=== PATIENT | male | born 1965 | race Caucasian/White ===

== ENCOUNTER 2019-09-19 10:23 | Emergency (ER) | payer OTHER, SELFPAY ==
[2019-09-19 10:34] VITALS: BP 185/90; PULSE 71; RESP 16; TEMP 37; O2SAT 98
--- NOTE | 2019-09-19 10:35 | ED.GENADULT ---
HPI - General Adult General Chief complaint: Ear Stated complaint: ear pain Source: patient and RN notes reviewed Mode of arrival: ambulatory Limitations: no limitations History of Present Illness HPI narrative: This is a 54 years old male presents to the office for an evaluation of right ear pain for two day. He has been swimming in his pool for 1 week. He has similar symptoms in the past with swimmer's ear. He tried [id number] eardrops with no changes. Denies any other associated symptoms such as fever, cough, congestion, or feeling ill. He admits to history of hypertension. Related Data Home Medications Medication Instructions Recorded Confirmed doxycycline monohydrate 100 mg 100 mg PO DAILY 08/15/19 09/12/19 capsule aspirin 09/19/19 Allergies Allergy/AdvReac Type Severity Reaction Status Date / Time No Known Allergies Allergy Verified 09/12/19 11:11 Review of Systems Review of Systems: Narrative: CONSTITUTIONAL: Denies fever, chills, sweats. EYES: Denies visual changes ENT: Denies rhinorrhea, congestion, sore throat CARDIOVASCULAR: Denies chest pain RESPIRATORY: Denies dyspnea, cough GASTROINTESTINAL: Denies abdominal pain, nausea, vomiting SKIN: Denies rash MUSCULOSKELETAL: Denies acute back pain NEUROLOGIC: Denies lightheaded All systems reviewed & are unremarkable except as noted in HPI and below PMFSH Past Medical History Medical History Essential (primary) hypertension JOELLE (obstructive sleep apnea) Other and unspecified hyperlipidemia Family History Family History Other Diabetes mellitus Family history of coronary artery disease Malignant neoplasm of prostate Social History Social History Smoking status: Former smoker Alcohol intake: current Comments At time of signature, I agree with nursing past medical, surgical, social and family history. There is no relevant family history pertinent to the presenting complaint. Exam Narrative: Exam Narrative: GENERAL: This is a well-nourished, well-developed patient, in no apparent distress. EARS: External ears normal, left auditory canals clear and without drainage, right canal appears edematous with erythema and tragal tenderness. TMs normal without perforation. Hearing grossly intact. NOSE: External nose normal with no obvious nasal discharge, nares without redness, no rhinorrhea. THROAT: Mucous membranes moist, posterior pharynx clear. NECK: Neck supple, non-tender without lymphadenopathy, masses or thyromegaly. CARDIOVASCULAR: Regular rate and rhythm without murmurs, gallops, or rubs. RESPIRATORY: Clear to auscultation. Breath sounds equal bilaterally. No wheezes, rales, or rhonchi. GASTROINTESTINAL: Abdomen soft, non-tender, nondistended. Bowel sounds are active. No guarding. SKIN: warm, intact with no suspicious lesions or rash, good texture and turgor. NEURO: awake, alert, and oriented to person, place and time. There were no obvious focal neurologic abnormalities. Steady gait Zia Coma Scale Eye Opening: Spontaneous 4 Zia Coma Scale Motor: Obeys Commands 6 [place] Coma Scale Verbal: Oriented 5 Course Vital Signs Vital signs: Vital Signs Temperature 98.6 F 09/19/19 10:34 Pulse Rate 71 09/19/19 10:34 Respiratory Rate 16 09/19/19 10:34 Blood Pressure 185/90 H 09/19/19 10:34 Pulse Oximetry 98 09/19/19 10:34 Temperature 98.6 F 09/19/19 10:34 Pulse Rate 71 09/19/19 10:34 Respiratory Rate 16 09/19/19 10:34 Blood Pressure 185/90 H 09/19/19 10:34 Pulse Oximetry 98 09/19/19 10:34 Medical Decision Making MDM Narrative Medical decision making narrative: Elevated BP noted in the office, I recommend patient to follow-up with his doctors to recheck in 2 weeks. Discharge instructions reviewed with patient, as well
== END 2019-09-19 10:56 | disposition home or self-care (01) ==
PROVIDERS: Emergency Provider Nurse Practitioner; PCP Family Medicine
DX: H60.331 Swimmer's ear, right ear (principal); I10 Essential (primary) hypertension; G47.33 Obstructive sleep apnea (adult) (pediatric); E78.5 Hyperlipidemia, unspecified; Z87.891 Personal history of nicotine dependence
CPT/HCPCS: 99213; G0463

== ENCOUNTER 2021-05-01 08:03 | Emergency (ER) | payer OTHER, SELFPAY ==
[2021-05-01 08:17] VITALS: BP 172/81; PULSE 68; RESP 16; TEMP 36.5; O2SAT 99
--- NOTE | 2021-05-01 08:31 | ED.MALEGU ---
HPI - Male Genitourinary General Chief complaint: Urogenital-Male Stated complaint: bladder infection/abd pain Time Seen by Provider: 05/01/21 08:30 Source: patient Mode of arrival: ambulatory Limitations: no limitations History of Present Illness HPI Narrative: Hang Chester is a 56 yo male with a PMH of HTN, uti, who comes to [facility] with complaints of dysuria the last 24 hours and of lower abdominal pain. He states he had lower abdominal pain a week ago and it disappeared and was result of constipation due to starting a new keto diet couple weeks prior; but the pain is now returned and he has frequency and difficulty starting stream and voiding large amount the same time. He is having difficulty giving us a urine sample for dipstick analysis No fever no nausea vomiting diarrhea Related Data Home Medications Medication Instructions Recorded Confirmed doxycycline hyclate 100 mg PO DAILY 05/01/21 05/01/21 ketoconazole 1 applic TOPICAL DAILY 05/01/21 05/01/21 terbinafine HCl 250 mg PO DAILY 05/01/21 05/01/21 Allergies Allergy/AdvReac Type Severity Reaction Status Date / Time No Known Allergies Allergy Verified 05/01/21 08:47 Review of Systems Review of Systems: CONSTITUTIONAL: Denies fever, chills, sweats. EYES: Denies visual changes, redness, discharge. ENT: Denies rhinorrhea, congestion, sore throat, otalgia. CARDIOVASCULAR: Denies chest pain, palpitations, edema. RESPIRATORY: Denies dyspnea, wheezing, cough GASTROINTESTINAL: Denies abdominal pain, nausea, vomiting, diarrhea. GENITOURINARY: Has dysuria, no hematuria, abnormal discharge SKIN: Denies rash or itching. NEUROLOGIC: Denies numbness, or focal weakness. PSYCHIATRIC: Denies anxiety or depression. [facility] Past Medical History Medical History BMI 38.0-38.9,adult Essential (primary) hypertension JOELLE (obstructive sleep apnea) Other and unspecified hyperlipidemia Screening for lipid disorders Screening for prostate cancer Family History Family History Other Diabetes mellitus Family history of coronary artery disease Malignant neoplasm of prostate Social History Social History Smoking status: Former smoker Alcohol intake: current Comments At time of signature, I agree with nursing past medical, surgical, social and family history. There is no relevant family history pertinent to the presenting complaint. Exam Narrative: GENERAL: This is a well-nourished, well-developed patient, in mild distress. HEAD: normocephalic, atraumatic. EYES: Sclera clear/white. Vision is grossly intact. EARS: External ears normal, Hearing grossly intact. NOSE: External nose normal without nasal discharge, nares without redness, no rhinorrhea. THROAT: Mucous membranes moist, NECK: Neck supple, CARDIOVASCULAR: Regular rate and rhythm without murmurs, gallops, or rubs. RESPIRATORY: Clear to auscultation. Breath sounds equal bilaterally. No wheezes, rales, or rhonchi. GASTROINTESTINAL: Abdomen soft, -tender,syprapubic area SKIN: warm, intact with no suspicious lesions or rash, good texture and turgor. NEURO: awake, alert, and oriented to person, place and time. There were no obvious focal neurologic abnormalities. Steady gait EXTREMITIES: Normal range of motion. BACK: Nontender without deformity Course Course Emergency Course: Patient here complaining of frequency difficulty starting stream and voiding adequate amounts each time Urinalysis shows- tr blood,ketones Treatment for dysuria with Cipro 500 mg 1 twice daily x5 days-told patient to go to ER or to doctor if pain worsens he is to go to ER if he starts running a temp and the pain becomes more severe within the next 24 hours Level of Care: Express Care Visit Vital Signs Vital signs: Vital Signs Temperature 97.7 F 05/01/21
--- NOTE | 2021-05-01 08:41 | ED_ITS ---
HPI - Nausea/Vomiting/Diarrhea General Chief complaint: Urogenital-Male Stated complaint: bladder infection/abd pain Time Seen by Provider: 05/01/21 08:30 Source: patient Mode of arrival: ambulatory Limitations: no limitations Related Data Home Medications Medication Instructions Recorded Confirmed aspirin 09/19/19 03/17/20 Allergies Allergy/AdvReac Type Severity Reaction Status Date / Time No Known Allergies Allergy Verified 03/17/20 07:53 [facility] Past Medical History Medical History BMI 38.0-38.9,adult Essential (primary) hypertension JOELLE (obstructive sleep apnea) Other and unspecified hyperlipidemia Screening for lipid disorders Screening for prostate cancer Family History Family History Other Diabetes mellitus Family history of coronary artery disease Malignant neoplasm of prostate Social History Social History Smoking status: Former smoker Alcohol intake: current Course Vital Signs Vital signs: Vital Signs Temperature 97.7 F 05/01/21 08:17 Pulse Rate 68 05/01/21 08:17 Respiratory Rate 16 05/01/21 08:17 Blood Pressure 172/81 H 05/01/21 08:17 Pulse Oximetry 99 05/01/21 08:17 Temperature 97.7 F 05/01/21 08:17 Pulse Rate 68 05/01/21 08:17 Respiratory Rate 16 05/01/21 08:17 Blood Pressure 172/81 H 05/01/21 08:17 Pulse Oximetry 99 05/01/21 08:17 Discharge Plan Discharge Clinical Impression: Dysuria Prescriptions: No Action aspirin RF: 0 sildenafil 100 mg tablet 100 mg PO DAILY PRN (Reason: sexual activity) Qty: 10 RF: 2 lisinopril-hydrochlorothiazide 20-25 mg tablet 1 tablet PO DAILY Qty: 90 RF: 1 metoprolol succinate 100 mg tablet extended release 24 hr See Rx Instructions .ROUTE .COMPLEX Qty: 180 RF: 3 amlodipine 10 mg tablet 10 mg PO DAILY Qty: 90 RF: 3 pravastatin 20 mg tablet 20 mg PO DAILY Qty: 90 RF: 0 clonidine HCl 0.1 mg tablet 0.1 mg PO DAILY Qty: 90 RF: 3 Follow-up/Referrals: Jerel Monreal MD [Primary Care Provider] -
== END 2021-05-01 09:00 | disposition home or self-care (01) ==
PROVIDERS: Emergency Provider Nurse Practitioner; PCP Family Medicine
DX: R30.0 Dysuria (principal); I10 Essential (primary) hypertension; G47.33 Obstructive sleep apnea (adult) (pediatric); E78.5 Hyperlipidemia, unspecified
CPT/HCPCS: 81003; 87086; 99203; G0463

== ENCOUNTER 2021-12-21 00:16 | Day surgery (SDC) | payer OTHER, SELFPAY ==
[2021-12-07 12:27] VITALS: BMI 38.7
[2021-12-21 06:20] VITALS: BP 182/87; PULSE 64; RESP 18; TEMP 36.5; O2SAT 98
[2021-12-21] MEDS: LACTATED RINGERS 1,000 ML 150 ML IV CONT (06:21)
--- NOTE | 2021-12-21 06:49 | WPDANESEPPF ---
Anes - Initial Pre Proc Eval Procedure: Operation Date: 12/21/21 07:30 Proposed Procedures p Screening Colonoscopy - Manoj Figueredo MD Date/Time: 12/21/21 06:49 Surgeon: Manoj Figueredo MD Pre Op Diagnosis: neoplasm screening Patient Data Age: 56 Gender: M Height: 1.78 m Weight: 126.9 kg Last Vital Signs Temp 36.5 C 12/21/21 06:20 Pulse 64 12/21/21 06:20 Resp 18 12/21/21 06:20 BP 182/87 H 12/21/21 06:20 Pulse Ox 98 12/21/21 06:20 O2 Del Method Room Air 12/21/21 06:20 Allergies Allergy/AdvReac Type Severity Reaction Status Date / Time No Known Allergies Allergy Verified 12/21/21 06:17 Home Medications Medication Instructions Recorded Confirmed Type doxycycline hyclate 100 mg capsule 100 mg PO DAILY 05/01/21 12/07/21 History lisinopril 20 See Rx Instructions .Route 05/13/21 12/07/21 Rx mg-hydrochlorothiazide 25 mg tablet .COMPLEX #90 tabs pravastatin 20 mg tablet See Rx Instructions .Route 06/17/21 12/07/21 Rx .COMPLEX #90 tabs sildenafil 100 mg tablet 100 mg PO DAILY PRN sexual 10/13/21 12/07/21 Rx activity #30 tabs terbinafine HCl 250 mg tablet 250 mg PO DAILY #60 tabs 10/14/21 12/07/21 Rx clonidine HCl 0.1 mg tablet 0.2 mg PO DAILY #180 tabs 11/23/21 12/07/21 Rx aspirin 81 mg tablet,delayed 81 mg PO DAILY 12/07/21 12/07/21 History release (Adult Low Dose Aspirin) amlodipine 10 mg tablet 10 mg PO DAILY #90 tabs 12/14/21 12/21/21 Rx metoprolol succinate 100 mg See Rx Instructions .Route 12/14/21 12/21/21 Rx tablet,extended release 24 hr .COMPLEX #180 tabs Patient hx anesthesia problems: none Family hx anesthesia problems: none Results Review: All pre-operative results and documents have been reviewed as part of the pre-operative evaluation. [facility] Past Medical History Medical History BMI 38.0-38.9,adult Essential (primary) hypertension JOELLE (obstructive sleep apnea) Other and unspecified hyperlipidemia Screening for lipid disorders Screening for prostate cancer Family History Family History Sibling Brain tumor Other Diabetes mellitus Family history of coronary artery disease Malignant neoplasm of prostate Social History Social History Smoking status: Former smoker Tobacco type: cigarettes Alcohol intake: current Drinks per week: 12 Alcohol use details: Beer Substance use: current Substance use type: marijuana Last use: Occasionally Living arrangements: with family Spiritual care concerns: No Anes - Eval Final PreProcedure Day of Procedure 12/21/21 06:49 Patient weight: morbidly obese Heart: regular rate and rhythm Lungs: clear to auscultation Airway: Mallampati scale class II Neurological: alert and oriented Last oral intake: >/= 8 hours ASA classification: III Emergent: no Anesthetic plan: proceed Anesthesia type and monitoring: general GIVS and standard monitoring Results Review: All pre-operative results and documents have been reviewed as part of the pre-operative evaluation. Informed Consent: The patient's anesthetic plan and its attendant risks and benefits were discussed with the patient/family/POA. Questions were solicited and answers provided to the satisfaction of the patient/family/POA.
--- NOTE | 2021-12-21 07:17 | PM.HPGS ---
History of Present Illness History of Present Illness Consent: Risks, benefits, and alternatives have been discussed and questions answered. Patient agrees to proceed with procedure. Chief complaint: neoplasm screening Narrative: Hang Chester is a 56 year old male with colon polyps in 2018 Review of Systems Constitutional: Constitutional: Denies headache(s) and Denies weakness Eyes: Eyes: Denies blurry vision ENT: Reports Normal hearing present, Denies headache(s) and Denies neck pain Cardiovascular: Cardiovascular: Denies chest pain and Denies dyspnea Respiratory: Respiratory: Denies dyspnea Gastrointestinal: Gastrointestinal: Reports no additional gastrointestinal complaints Genitourinary: Genitourinary: Denies dysuria Musculoskeletal: Musculoskeletal: Denies neck pain Integumentary/Breasts: Skin/Breast: Denies dry skin Neurologic: Reports Normal hearing present, Denies headache(s) and Denies weakness Psychiatric: Psychiatric: Denies anxiety Endocrine: Endocrine: Denies change in body appearance Hematologic/Lymphatic: Hematologic/Lymphatic: Denies easy bleeding Allergic/Immunologic: Allergic/Immunologic: Denies urticaria PMF Past Medical History Medical History BMI 38.0-38.9,adult Essential (primary) hypertension JOELLE (obstructive sleep apnea) Other and unspecified hyperlipidemia Screening for lipid disorders Screening for prostate cancer Family History Family History Sibling Brain tumor Other Diabetes mellitus Family history of coronary artery disease Malignant neoplasm of prostate Social History Social History Smoking status: Former smoker Tobacco type: cigarettes Alcohol intake: current Drinks per week: 12 Alcohol use details: Beer Substance use: current Substance use type: marijuana Last use: Occasionally Living arrangements: with family Spiritual care concerns: No Meds Home Medications and Allergies Home Medications Medication Instructions Recorded Confirmed Type doxycycline hyclate 100 mg capsule 100 mg PO DAILY 05/01/21 12/07/21 History lisinopril 20 See Rx Instructions .Route 05/13/21 12/07/21 Rx mg-hydrochlorothiazide 25 mg tablet .COMPLEX #90 tabs pravastatin 20 mg tablet See Rx Instructions .Route 06/17/21 12/07/21 Rx .COMPLEX #90 tabs sildenafil 100 mg tablet 100 mg PO DAILY PRN sexual 10/13/21 12/07/21 Rx activity #30 tabs terbinafine HCl 250 mg tablet 250 mg PO DAILY #60 tabs 10/14/21 12/07/21 Rx clonidine HCl 0.1 mg tablet 0.2 mg PO DAILY #180 tabs 11/23/21 12/07/21 Rx aspirin 81 mg tablet,delayed 81 mg PO DAILY 12/07/21 12/07/21 History release (Adult Low Dose Aspirin) amlodipine 10 mg tablet 10 mg PO DAILY #90 tabs 12/14/21 12/21/21 Rx metoprolol succinate 100 mg See Rx Instructions .Route 12/14/21 12/21/21 Rx tablet,extended release 24 hr .COMPLEX #180 tabs Allergies Allergy/AdvReac Type Severity Reaction Status Date / Time No Known Allergies Allergy Verified 12/21/21 06:17 Vital Signs Vital Signs - 24 hr 12/21/21 06:20 Temperature 97.7 F Pulse Rate 64 Respiratory Rate 18 Blood Pressure 182/87 H Pulse Oximetry 98 Oxygen Delivery Room Air Exam Const: General: comfortable and no acute distress HENMT: General nose exam: Normal nares present Eyes: General: appearance normal, both eyes and all related structures Neck: Neck: no JVD Resp: Auscultation: clear to auscultation bilaterally Cardio: Rate: regular rate Rhythm: regular rhythm GI: Inspection: non-distended GI Palp: Yes Soft to palpation Skin: General skin exam: normal color Neuro: General: gait normal Speech: normal speech Extrem: General: normal to inspection Psych: Mental Status: mental status grossly normal Assessment and Plan Assessment a
[2021-12-21 07:40] VITALS: BP 120/68; PULSE 59; RESP 20; O2SAT 93
[2021-12-21 07:50] VITALS: BP 138/83; PULSE 58; RESP 16; O2SAT 96
[2021-12-21 08:00] VITALS: BP 161/92; PULSE 54; RESP 19; O2SAT 95
== END 2021-12-21 08:10 | disposition home or self-care (01) ==
PROVIDERS: PCP Family Medicine; Visit Provider Internal Medicine Gastroenterology
PROC: 0DJD8ZZ Inspection of Lower Intestinal Tract, Via Natural or Artificial Opening Endoscopic (ICD-10-PCS; CPT 45378; principal; 2021-12-21 07:30)
DX: Z12.11 Encounter for screening for malignant neoplasm of colon (principal); K57.30 Diverticulosis of large intestine without perforation or abscess without bleeding; D12.3 Benign neoplasm of transverse colon; Z79.82 Long term (current) use of aspirin; I10 Essential (primary) hypertension; G47.33 Obstructive sleep apnea (adult) (pediatric); Z87.891 Personal history of nicotine dependence; F12.90 Cannabis use, unspecified, uncomplicated; E66.01 Morbid (severe) obesity due to excess calories; Z68.41 Body mass index [BMI] 40.0-44.9, adult
CPT/HCPCS: 45385; 88305; J2704; J7120

== ENCOUNTER 2024-03-16 08:27 | Emergency (ER) | payer BC, SELFPAY ==
--- NOTE | 2024-03-16 08:37 | ED_ITS ---
HPI - URI/Sore Throat General Chief Complaint: Upper Respiratory Infection Stated Complaint: cough, chest congestion Time Seen by Provider: 03/16/24 08:30 Source: patient Mode of arrival: ambulatory Limitations: no limitations History of Present Illness HPI Narrative: Hang is a 58-year-old male patient presenting to the clinic today with complaints of cough and chest congestion times. He reports MD elicited complaint: sore throat and nasal congestion Related Data Home Medications ?Medication ?Instructions ?Recorded ?Confirmed ?Last Taken ?Type aspirin 81 mg tablet,delayed 81 mg PO DAILY 12/07/21 02/06/23 12/21/21 History release (Adult Low Dose Aspirin) Allergies Allergy/AdvReac Type Severity Reaction Status Date / Time No Known Allergies Allergy Verified 02/06/23 08:17 Review of Systems Review of Systems: Pertinent positives per HPI. Patient denies any fever, chills, rash, headache, visual changes, dizziness, cough, shortness of breath, chest pain, palpitations, nausea, vomiting, diarrhea, constipation, abdominal pain, or any urinary issues. [facility] Past Medical History Medical History BMI 40.0-44.9, adult Screening for lipid disorders Screening for prostate cancer BMI 38.0-38.9,adult Essential (primary) hypertension Other and unspecified hyperlipidemia JOELLE (obstructive sleep apnea) Family History Family History Sibling Brain tumor Other Diabetes mellitus Family history of coronary artery disease Malignant neoplasm of prostate Social History Social History Smoking status: Former smoker Tobacco type: cigarettes Alcohol intake: current Drinks per week: 12 Alcohol use details: Beer Substance use: current Substance use type: marijuana Last use: Occasionally Lack of Transportation: No Lack of Food: Never True Current Housing: I Have Housing Concerned About Future Housing: No Difficulty Paying Gas/Electric Bills: No Difficulty Paying for Meds: No Currently Unemployed: No Education: High School Diploma/GED Difficulty w/ Childcare or Family Care: No Living arrangements: with family Spiritual care concerns: No Comments At the time of my signature, I reviewed and agree with the nursing past medical, surgical, social, and family history. There is no relevant family history pertinent to the patient complaint. Exam Narrative: General: Well-developed, well nourished, in no apparent distress Head: Normocephalic, atraumatic Eyes: Pupils equally round and reactive to light bilaterally, EOM intact, sclera and conjunctive clear, no discharge, lids normal Ears: TMs intact and clear, ear canals clear, no drainage, grossly hearing normal. Nose: Nares patent, no discharge, no inflammation, no sinus tenderness. Mouth: Oral pharynx without lesions or masses, good dentition, MMM. Neck: Supple, trachea midline, no enlargement of anterior or posterior cervical nodes, no thyroid masses or goiter palpable. Cardio: Regular rate and rhythm, s1 and s2 normal, no murmur appreciated. Resp: Clear to auscultation bilaterally, no rhonchi, rales, wheezing or rubs Course Course Emergency Course: Portions of this record may have been created with voice recognition software. Level of Care: Express Care Visit Vital Signs Vital signs: Vital signs reviewed MDM - URI/Sore Throat MDM Narrative Medical decision making narrative: At the time of visit patient is resting comfortably on the exam table. Patient appears to be nontoxic. Plan: Supportive measures were discussed with the patient and they voiced understanding discharge instructions and agrees to treatment plan. Return precautions reviewed Differential Diagnosis Differential diagnosis: Likely upper respiratory infection, otitis media, sinusitis, viral infection, bronchitis, influenza, pharyngitis and other (COVID) Discharge Plan Discharge Clinical Impression: Sinobronchitis Patient Disposition: Home, Self-Care Condition: Stable Instructions: Antibiotic Form, Acute Bronchitis (ED), Rhinosinusitis (ED) Additional Instructions: Take prescription medications only as prescribed-albuterol inhaler, Augmentin, and prednisone Increase fluids and stay well hydrated Tylenol/motrin for pain/fever Flonase and OTC antihistamines as directed Vicks vapor rub to open sinuses Sinus rinses for congestion Cepacol spray, cough drops, throat lozenges, warm tea with honey/lemon, gargle salt water to soothe throat BRAT diet for diarrhea Clear liquids x 24 hours then advance as tolerated for nausea/vomiting Go to the ED if you develop a worsening in your condition- high fever not controlled by Tylenol or Motrin, dehydration, weakness, lethargy, shortness of breath, or chest pain. Follow up with your PCP in 3-5 days if symptoms persist. Patient Language: Chinese Prescriptions: New prednisone 20 mg tablet 40 mg PO DAILY 5 Days Qty: 10 0RF albuterol sulfate 90 mcg/actuation HFA aerosol inhaler 2 puff inhalation Q4-6H PRN (Reason: shortness of breath or wheezing) 30 Days Qty: 8.5 0RF amoxicillin-pot clavulanate 875-125 mg tablet 1 tablet PO Q12H 10 Days Qty: 20 0RF No Action sildenafil 100 mg tablet 100 mg PO DAILY PRN (Reason: sexual activity) Qty: 30 0RF Rx Instructions: administer 30 minutes to 4 hours before activity aspirin [Adult Low Dose Aspirin] 81 mg Tablet,Delayed Release (Dr/Ec) 81 mg PO DAILY metoprolol succinate 100 mg tablet extended release 24 hr See Rx Instructions .ROUTE .COMPLEX Qty: 180 3RF Dose Instruction: TAKE 2 TABLETS DAILY Rx Instructions: TAKE 2 TABLETS DAILY amlodipine 10 mg tablet 10 mg PO DAILY Qty: 90 3RF clonidine HCl 0.1 mg tablet 0.2 mg PO DAILY Qty: 180 3RF lisinopril 20 mg tablet 20 mg PO DAILY Qty: 90 0RF Rx Instructions: to take with lisinopril/hctz for total of 40/25mg lisinopril-hydrochlorothiazide 20-25 mg tablet See Rx Instructions .ROUTE .COMPLEX Qty: 90 1RF Dose Instruction: TAKE 1 TABLET DAILY Rx Instructions: TAKE 1 TABLET DAILY pravastatin 20 mg tablet See Rx Instructions .ROUTE .COMPLEX Qty: 90 3RF Dose Instruction: TAKE 1 TABLET DAILY Rx Instructions: TAKE 1 TABLET DAILY Follow-up/Referrals: PHYSICIAN NOT ON STAFF,NONSTAFF [Primary Care Provider] - Time of Disposition: 08:44 Quality NIHSS Nursing Documentation ED NIHSS nursing documentation: reviewed/agree
[2024-03-16 08:38] VITALS: BP 171/81; PULSE 78; RESP 16; TEMP 36.6; O2SAT 97
== END 2024-03-16 08:47 | disposition home or self-care (01) ==
PROVIDERS: Emergency Provider Nurse Practitioner Family
DX: J32.9 Chronic sinusitis, unspecified (principal); J40 Bronchitis, not specified as acute or chronic; Z87.891 Personal history of nicotine dependence; F12.90 Cannabis use, unspecified, uncomplicated; I10 Essential (primary) hypertension; E78.49 Other hyperlipidemia; Z79.82 Long term (current) use of aspirin
CPT/HCPCS: 99213; G0463

== ENCOUNTER 2024-08-24 08:05 | Emergency (ER) | payer OTHER, SELFPAY ==
--- NOTE | 2024-08-24 08:07 | ED.DENTAL ---
HPI - Dental/Oral General Chief complaint: Dental/Oral Stated complaint: Dental Pain Time Seen by Provider: 08/24/24 08:06 Source: patient Mode of arrival: ambulatory Limitations: no limitations History of Present Illness HPI Narrative: Hang is a 59-year-old male patient presenting to the clinic today with complaints of left lower posterior dental pain x2 days. He reports the area that is affected is an area that he wears a partial. States he tried to contact the dentist yesterday but they were closed. Feels as though he has swelling in the left lower jaw with increase in pain. No discharge. Denies fevers, chills, body aches. Related Data Home Medications ?Medication ?Instructions ?Recorded ?Confirmed ?Last Taken ?Type aspirin 81 mg tablet,delayed 81 mg PO DAILY 12/07/21 03/16/24 12/21/21 History release (Adult Low Dose Aspirin) Allergies Allergy/AdvReac Type Severity Reaction Status Date / Time No Known Allergies Allergy Verified 03/16/24 09:33 Review of Systems Review of Systems: Pertinent positives per HPI. Patient denies any fever, chills, rash, headache, visual changes, dizziness, cough, runny nose, sore throat, shortness of breath, chest pain, palpitations, nausea, vomiting, diarrhea, constipation, abdominal pain, or any urinary issues. [facility] Past Medical History Medical History BMI 40.0-44.9, adult Screening for lipid disorders Screening for prostate cancer BMI 38.0-38.9,adult Essential (primary) hypertension Other and unspecified hyperlipidemia JOELLE (obstructive sleep apnea) Family History Family History Sibling Brain tumor Other Diabetes mellitus Family history of coronary artery disease Malignant neoplasm of prostate Social History Social History Smoking status: Former smoker Tobacco type: cigarettes Alcohol intake: current Drinks per week: 12 Alcohol use details: Beer Substance use: current Substance use type: marijuana Last use: Occasionally Lack of Transportation: No Lack of Food: Never True Current Housing: I Have Housing Concerned About Future Housing: No Difficulty Paying Gas/Electric Bills: No Difficulty Paying for Meds: No Currently Unemployed: No Education: High School Diploma/GED Difficulty w/ Childcare or Family Care: No Living arrangements: with family Spiritual care concerns: No Comments At the time of my signature, I reviewed and agree with the nursing past medical, surgical, social, and family history. There is no relevant family history pertinent to the patient complaint. Exam Narrative: General: Well-developed, well nourished, in no apparent distress Head: Normocephalic, atraumatic Eyes: Pupils equally round and reactive to light bilaterally, EOM intact, sclera and conjunctive clear, no discharge, lids normal Ears: TMs intact and clear, ear canals clear, no drainage, grossly hearing normal. Nose: Nares patent, no discharge, no inflammation, no sinus tenderness. Mouth: Oropharynx without lesions or masses, poor dentition, MMM. Tenderness to palpation over the left posterior lower gingiva with localized swelling of the gingiva and into the left lower jaw. No palpable abscess Neck: Supple, trachea midline, no enlargement of anterior or posterior cervical nodes, no thyroid masses or goiter palpable. Cardio: Regular rate and rhythm, s1 and s2 normal, no murmur appreciated. Resp: Clear to auscultation bilaterally anteriorly and posteriorly, no rhonchi, rales, wheezing or rubs Course Course Emergency Course: Portions of this record may have been created with voice recognition software. Level of Care: Express Care Visit Vital Signs Vital signs: Vital Signs Temperature 36.9 C 08/24/24 08:15 Pulse Rate 74 08/24/24 08:15 Respiratory Rate 16 08/24/24 08:15 Blood Pressure 169/76 H 08/24/24 08:15 Pulse Oximetry 97 08/24/24 08:15 Oxygen Delivery Room Air 08/24/24 08:15 Temperature 36.9 C 08/24/24 08:15 Pulse Rate 74 08/24/24 08:15 Respiratory Rate 16 08/24/24 08:15 Blood Pressure 169/76 H 08/24/24 08:15 Pulse Oximetry 97 08/24/24 08:15 Oxygen Delivery Room Air 08/24/24 08:15 Vital signs reviewed MDM - Dental/Oral MDM Narrative Medical decision making narrative: At the time of visit patient is resting comfortably on the exam table. Patient appears to be nontoxic. Plan: I suspect patient has a dental/gingival infection. Prescription for Augmentin was sent to the pharmacy. Supportive measures were discussed with the patient and they voiced understanding discharge instructions and agrees to treatment plan. Return precautions reviewed Differential Diagnosis Differential diagnosis: Likely gingival abscess, dental caries, toothache, dental abscess, fracture of tooth, aphthous ulcer and other Discharge Plan Discharge Clinical Impression: Dental infection Patient Disposition: Home Condition: Stable Instructions: Antibiotic Form, Toothache (ED) Additional Instructions: Take Augmentin as prescribed Increase fluids and stay well hydrated May take Tylenol/Motrin as needed for pain or fever May apply Orajel to the affected area to help alleviate pain May apply warm or cool compress to the affected area to help alleviate pain Follow-up with your dentist as soon as possible Patient Language: Sudanese Prescriptions: New amoxicillin-pot clavulanate 875-125 mg tablet 1 tablet PO Q12H 10 Days Qty: 20 0RF No Action sildenafil 100 mg tablet 100 mg PO DAILY PRN (Reason: sexual activity) Qty: 30 0RF Rx Instructions: administer 30 minutes to 4 hours before activity aspirin [Adult Low Dose Aspirin] 81 mg Tablet,Delayed Release (Dr/Ec) 81 mg PO DAILY metoprolol succinate 100 mg tablet extended release 24 hr See Rx Instructions .ROUTE .COMPLEX Qty: 180 3RF Dose Instruction: TAKE 2 TABLETS DAILY Rx Instructions: TAKE 2 TABLETS DAILY amlodipine 10 mg tablet 10 mg PO DAILY Qty: 90 3RF lisinopril-hydrochlorothiazide 20-25 mg tablet See Rx Instructions .ROUTE .COMPLEX Qty: 90 1RF Dose Instruction: TAKE 1 TABLET DAILY Rx Instructions: TAKE 1 TABLET DAILY pravastatin 20 mg tablet See Rx Instructions .ROUTE .COMPLEX Qty: 90 3RF Dose Instruction: TAKE 1 TABLET DAILY Rx Instructions: TAKE 1 TABLET DAILY Follow-up/Referrals: Елена,MD Seth [Primary Care Provider] - Time of Disposition: 08:18 Quality NIHSS Nursing Documentation ED NIHSS nursing documentation: reviewed/agree
[2024-08-24 08:15] VITALS: BP 169/76; PULSE 74; RESP 16; TEMP 36.9; O2SAT 97
== END 2024-08-24 08:30 | disposition home or self-care (01) ==
PROVIDERS: Emergency Provider Nurse Practitioner Family; PCP Internal Medicine
DX: K04.7 Periapical abscess without sinus (principal); I10 Essential (primary) hypertension; E78.49 Other hyperlipidemia; Z87.891 Personal history of nicotine dependence; F12.90 Cannabis use, unspecified, uncomplicated
CPT/HCPCS: 99213; G0463